=== PATIENT | female | born 1975 | race Caucasian/White ===

== ENCOUNTER 2020-08-26 09:32 | Outpatient (CLI) | payer BC, SELFPAY ==
--- NOTE | ~2020-08-26 | US_ITS ---
EXAMINATION: US pelvic complete w TV DATE: 08/26/2020 10:33 INDICATION: Abnormal uterine bleeding Comparison:No prior studies for comparison. TECHNIQUE: Multiple transabdominal and endovaginal sonographic images of the pelvis performed. FINDINGS: The uterus measures 9.4 x 4.2 x 4.9 cm. The endometrial complex measures 8 mm. The right ovary measures 3.4 x 2.8 x 2.8 cm and the left ovary measures 2.7 x 2.1 x 1.9 cm. There are bilateral ovarian cysts measuring up to 2.5 cm on the right and 2.1 cm on the left. There are small follicles in each ovary. Normal doppler signal in both ovaries. There is no free fluid in the pelvis. There are no abnormal masses seen on either side. IMPRESSION: 1. Bilateral ovarian cysts, largest in the right ovary measuring 2.5 cm. Reviewed, dictated and finalized at location B.
== END 2020-08-26 09:33 | disposition home or self-care (01) ==
PROVIDERS: PCP Obstetrics & Gynecology; Visit Provider Obstetrics & Gynecology
DX: N83.202 Unspecified ovarian cyst, left side (principal); N83.201 Unspecified ovarian cyst, right side; N93.9 Abnormal uterine and vaginal bleeding, unspecified
CPT/HCPCS: 76830; 76856

== ENCOUNTER 2021-04-21 12:26 | Emergency (ER) | payer BC, SELFPAY ==
[2021-04-21] VITALS (15 sets, daily range): BP systolic 104–119; BP diastolic 68–87; PULSE 110–147; RESP 12–26; TEMP 37.2; O2SAT 90–100
--- NOTE | ~2021-04-21 | CT_ITS ---
EXAMINATION: CT abdomen pelvis w con DATE: 04/21/2021 15:02 INDICATION: Low abdominal pain. Bilateral flank pain. Nausea. TECHNIQUE: Computed tomography (CT) of the abdomen and pelvis was performed with 100 mL Omnipaque 350 intravenous contrast. Automated exposure control and iterative reconstruction technique were employe d. The dose-length product was 340.72 mGy-cm. COMPARISON: Ultrasound pelvis 08/26/2020 FINDINGS: The visualized portions of the lung bases demonstrate mild atelectasis. No pleural effusion . The heart size is normal. No pericardial effusion. The liver, spleen, gallbladder, pancreas, adrena l glands, and kidneys are normal. There is bilateral hydrosalpinx. There are no dilated loops of cole l. The appendix is normal. There are no pathologically enlarged lymph nodes. There is no free intrape ritoneal fluid. There is fat stranding at the root of the small bowel mesentery. There is a benign [place] in right pelvis. There is mild lumbar spondylosis. IMPRESSION: 1. Bilateral hydrosalpinx. 2. Fat stranding at the root of the small bowel mesentery, consistent with edema versus inflammation Reviewed, dictated and finalized at location B. UNITY ASSOCIATE IMPRESSION: 1. Bilateral hydrosalpinx. 2. Fat stranding at the root of the small bowel mesentery, consistent with peace a versus inflammation
[2021-04-21] MEDS: SODIUM CHLORIDE 0.9% IV 1,000 ML 999 ML IV CONT (13:30)
--- NOTE | 2021-04-21 13:34 | ED.ABDPAIN ---
HPI - Abdominal Pain General Chief Complaint: Back Pain/Injury Stated Complaint: pain in back and abd, dizziness, urinary sx Time Seen by Provider: 04/21/21 12:31 Source: patient Mode of arrival: ambulatory Limitations: no limitations History of Present Illness HPI narrative: Patient is a 46-year-old female complaining of lower abdominal pain accompanied by bilateral flank pain, nausea and dysuria, 3 out of 10, sharp started 2 days ago. Patient also states that she was having some dizziness due to the pain but now resolved. Patient denies any chest pain, shortness of breath, vomiting, diarrhea, fever or chills. Patient did not want anything for pain. Related Data Home Medications Medication Instructions Recorded Confirmed levothyroxine PO 04/21/21 liothyronine mcg 04/21/21 thyroid (pork) [[facility] Thyroid] 04/21/21 Allergies Allergy/AdvReac Type Severity Reaction Status Date / Time ciprofloxacin Allergy Mild Unknown Verified 04/21/21 12:35 [place] Nut Allergy Severe THROAT Uncoded 07/12/14 15:52 CLOSES UP Review of Systems Review of Systems: All systems reviewed & are unremarkable except as noted in HPI and below Constitutional: Constitutional: Denies body ache(s), Denies chills, Denies excessive sweating, Denies fatigue, Denies fever(s), Denies headache(s), Denies lethargy, Denies malaise, Denies weakness and Denies weight loss Eyes: Eyes: Denies blurry vision, Denies change in vision and Denies loss of vision ENT: Denies dizziness, Denies ear discharge, Denies headache(s), Denies lip swelling, Denies epistaxis, Denies nasal congestion, Denies neck pain, Denies throat swelling and Denies tongue swelling Cardiovascular: Cardiovascular: Denies chest pain, Denies chest pain at rest, Denies chest pain with activity, Denies diaphoresis, Denies rapid heart rate, Denies edema, Denies irregular heart rhythm, Denies lightheadedness, Denies palpitations, Denies dyspnea and Denies dyspnea on exertion Respiratory: Respiratory: Denies chest congestion, Denies cough, Denies hemoptysis, Denies dyspnea and Denies dyspnea on exertion Gastrointestinal: Gastrointestinal: Denies melena, Denies hematochezia, Denies diarrhea, Denies vomiting and Denies hematemesis Musculoskeletal: Musculoskeletal: Denies abnormal gait, Denies deformity, Denies joint swelling, Denies limited range of motion, Denies neck pain and Denies numbness Neurologic: Denies Abnormal speech present, Denies abnormal gait, Denies confusion, Denies dizziness, Denies headache(s), Denies focal weakness, Denies loss of vision, Denies numbness, Denies Other visual disturbances, Denies Sensory deficit (Neuro) and Denies weakness Psychiatric: Psychiatric: Denies confusion, Denies depression, Denies auditory hallucinations, Denies homicidal ideation and Denies suicidal ideation Endocrine: Endocrine: Denies cold intolerance, Denies excessive sweating, Denies fatigue, Denies heat intolerance and Denies palpitations Hematologic/Lymphatic: Hematologic/Lymphatic: Denies easy bleeding and Denies easy bruising Allergic/Immunologic: Allergic/Immunologic: Denies lip swelling, Denies throat swelling and Denies tongue swelling PMFSH Comments Past medical history: Hypothyroidism Family history: Hypertension Social history: Positive for smoker no EtOH or drug use Exam Const: General: cooperative, healthy appearing, comfortable, no acute distress, well developed, alert and awake; No confusion Orientation/consciousness: oriented to person, oriented to place, oriented to time, patient oriented x3 and No confusion Limitations: no limitations HENMT: Head: normal to inspection, normocephalic and atraumatic Ears: hearing grossly normal bilaterally, TM normal on the right and TM normal on the left General nose exam: Normal external nose present, Normal nares present and No nasal discharge present Face and sinus: normal facial exam Mouth: Yes Normal oral and palatal mucosa present, Yes lip
[2021-04-21 13:39] LABS: Basophils Percent Auto 0.1 % (0.2-1.2); Eosinophils Absolute Auto 0.1 K/mm3 (0-0.3); Eosinophils Percent Auto 1.8 % (0-4.4); Hematocrit 39.4 % (37.0-47.0); Hemoglobin 14.5 g/dL (12.0-15.0); Immature Granulocyte Absolute 0.01 K/mm3 (0.00-0.031); Immature Granulocyte Percent A 0.1 % (0-0.5); Lymphocytes Absolute Auto 0.36 K/mm3 (0.9-3.2); Lymphocytes Percent Auto 5.3 % (18.3-44.2); Mean Corpuscular HGB Conc 36.8 g/dl (32-36); Mean Corpuscular Hemoglobin 32.1 pg (26-34); Mean Corpuscular Volume 87.2 fl (80-100); Mean Platelet Volume 9.2 fl (7.4-10.4); Monocytes Absolute Auto 0.3 K/mm3 (0.1-0.6); Monocytes Percent Auto 4.2 % (2.6-8.5); Neutrophils Absolute Auto 6.1 K/mm3 (1.3-6.7); Neutrophils Percent Auto 88.5 % (45.5-73.1); Platelet Count Result 160 k/mm3 (150-375); Red Blood Count 4.52 M/mm3 (4.2-5.4); Red Cell Distribution Width 11.8 % (11.5-14.5); White Blood Count 6.8 K/mm3 (4.5-10.0)
[2021-04-21 14:01] LABS: Add Urine Microscopic? YES; Appearance Urine Clear (Clear); Bilirubin Urine Negative (Negative); Blood Urine 2+ (Negative); Color Urine Yellow (Yellow); Glucose Urine UA Negative (Negative); Ketones Urine 1+ mg/dL (Negative); Leukocyte Esterase Ur Negative LEU/UL (Negative); Mucus Urine Rare /lpf; Nitrate Urine Negative (Negative); Protein Urine Negative (Negative); Squamous Epithelial Cell Urine Rare /hpf (Few); Urobilinogen Urine Negative mg/dL (<2.0); WBC Urine 0-3 /hpf
[2021-04-21] MEDS: ONDANSETRON INJ 4 MG/2 ML VIAL IV PUSH (14:22)
[2021-04-21 14:36] LABS: Alanine Aminotransferase 30 U/L (4-35); Albumin Level 4.2 g/dL (3.5-5.1); Alkaline Phosphatase 60 U/L (38-126); Anion Gap 9 mmol/L (8-16); Aspartate Amino Transferase 23 U/L (14-36); Bilirubin,Total 1.7 mg/dL (0.2-1.3); Blood Urea Nitrogen 16 mg/dL (7-17); Calcium 9.2 mg/dL (8.4-10.2); Carbon Dioxide 23 mmol/L (22-30); Chloride 100 mmol/L (98-107); Estimated CRCL calculation 140 ml/min; Estimated Glomerular Filt Rate > 60; Glucose 108 mg/dL (65-110); Lipase 79 U/L (23-300); Potassium 3.9 mmol/L (3.4-5.0); Sodium 132 mmol/L (137-145)
[2021-04-21 14:53] LABS: Lactic Acid Reflex < 0.5 mmol/L (0.7-2.1)
== END 2021-04-21 15:51 | disposition home or self-care (01) ==
PROVIDERS: Emergency Medicine; Emergency Provider Emergency Medicine
DX: R10.30 Lower abdominal pain, unspecified (principal); R11.0 Nausea
CPT/HCPCS: 36415; 74177; 80053; 81001; 81025; 83605; 83690; 85025; 96361; 96374; 99284; J2405; J7030; Q9967

== ENCOUNTER 2021-09-11 12:00 | Outpatient (CLI) | payer BC, SELFPAY ==
--- NOTE | ~2021-09-11 | MMUS_ITS ---
EXAMINATION: MM diagnostic ruddy RT w leonard, US breast RT limited HISTORY: Palpable right breast lump TECHNIQUE: Additional 3-D tomosynthesis images of the right breast were performed and synthetic 2-D i mages were generated. CAD analysis was submitted and interpreted. High resolution Limited right breas t ultrasound was performed. COMPARISON: 02/01/2018 BREAST PARENCHYMAL COMPOSITION: The breasts are heterogenously dense, which may obscure small masses FINDINGS: MAMMOGRAPHIC FINDINGS: There are no suspicious masses, calcifications or architectural distortion in the right breast to sug gest malignancy. ULTRASOUND: Limited right breast ultrasound: Normal heterogeneous echotexture without focal solid or cystic mass. IMPRESSION: 1. No evidence for malignancy in the right breast. 2. Routine yearly screening mammogram and regular clinical breast examination are recommended. BI-RADS Category 1: Negative Reviewed, dictated and finalized at location A. IMPRESSION: 1. No evidence for malignancy in the right breast. 2. Routine yearly screening mammogram and regular clinical breast examination a re recommended. BI-RADS Category 1: Negative
== END 2021-09-11 12:01 | disposition home or self-care (01) ==
LOC: ANHIMG 12:01
DX: N63.31 Unspecified lump in axillary tail of the right breast (principal)
CPT/HCPCS: 76642; 77061; 77065; G0279

== ENCOUNTER 2022-12-13 08:33 | Outpatient (CLI) | payer BC, SELFPAY ==
--- NOTE | ~2022-12-13 | DEXA_ITS ---
Bone Density Report Name: FALCO BETTENCOURT Age: 47 Sex: Female Ethnicity: White Date of : 1975 Indication: prior fracture; Referring Provider: UNKNOWN, UNKNOWN Study: Bone densitometry was performed. Exam Date: December 13, 2022 Accession number: [id number] Bone Density: Region BMD T-score Z-score Classification AP Spine(L1-L4) 0.931 -1.1 -0.5 Osteopenia Femoral Neck (Left) 0.627 -2.0 -1.5 Osteopenia Total Hip (Left) 0.766 -1.4 -1.1 Osteopenia Femoral Neck (Right) 0.552 -2.7 -2.1 Osteoporosis Total Hip (Right) 0.645 -2.4 -2.1 Osteopenia Femoral Neck Mean 0.590 -2.3 -1.8 Osteopenia Total Hip Mean 0.705 -1.9 -1.6 Osteopenia World Health Organization criteria for BMD impression classify patients as: Normal (T-score at or above -1.0), Osteopenia (T-score between -1.0 and -2.5), or Osteoporosis (T-score at or below -2.5). 10-year Fracture Risk: FRAX not reported because: Premenopausal woman Some T-score for Spine Total or Hip Total or Femoral Neck at or below -2.5 Clinical Information Provided by Patient: Has had a low trauma fracture Has used the following medications: Vitamin D, Calcium Patient maximum height was 57 Drinks caffeinated beverages Onset of menses at age 14 Premenopausal Number of children 2 Impression: The patient's bone mass is below expected range for age, gender and ethnicity based on the Right Femoral Neck Z-score. The patient has risk factors, including: previous fracture. Discussion: BONE DENSITY IS ABNORMALLY LOW FOR AGE, SEX, AND RACE. This patient's lowest Z-score is -2.0 or more below average for age, sex, and race at one or more sites. This may be due to low peak bone mass or to excessive bone loss. There may be some underlying disease or condition contributing to reduced bone mass. Further evaluation should be considered. Although there is a predictable association between low bone mass and the risk of osteoporotic fractures in untreated postmenopausal women, there are no data relating bone density and fracture risk in younger women. The ISCD position is that the diagnosis of ?low bone mass? or ?osteoporosis? should not be made on densitometric criteria alone. WHO criteria only apply to postmenopausal women. The 10-year fracture risk calculated by FRAX is less than the threshold recommended by the National Osteoporosis Foundation (NOF) for treatment for postmenopausal women, and no threshold has been established for premenopausal women. All treatment decisions require clinical judgment and consideration of individual patient factors, including patient preferences, comorbidities, previous drug use, risk factors not captured in the FRAX model (e.g., frailty, falls, vitamin D deficiency, increased bone turnover, interval significant decline in bone density) and possible under or overestimation of fracture risk by FRAX. Although pharmacologic
== END 2022-12-13 08:34 | disposition home or self-care (01) ==
LOC: CHSIMG 08:38
DX: Z78.0 Asymptomatic menopausal state (principal)
CPT/HCPCS: 77080

== ENCOUNTER 2024-06-19 08:44 | Outpatient (CLI) | payer BC, SELFPAY ==
--- NOTE | ~2024-06-19 | MMUS_ITS ---
EXAMINATION: MM diagnostic ruddy BI w leonard, US axilla RT HISTORY: Palpable right axillary abnormality TECHNIQUE: Additional 3-D tomosynthesis images of the breasts were performed and synthetic 2-D images were generated. CAD analysis was submitted and interpreted. High resolution right axillary ultrasoun d was performed. COMPARISON: Comparison to multiple prior studies sequentially, with oldest reviewed study dated 09/2017. BREAST PARENCHYMAL COMPOSITION: Dense: The breasts are heterogeneously dense, which may obscure small masses FINDINGS: MAMMOGRAPHIC FINDINGS: The breasts are stable. No new masses, calcifications or architectural distortion in either breast to suggest malignancy. ULTRASOUND: Right axillary ultrasound: Normal heterogeneous echotexture without focal solid or cystic mass. IMPRESSION: 1. No evidence for malignancy in either breast. 2. Routine yearly screening mammogram and regular clinical breast examination are recommended. BI-RADS CATEGORY 1 - NEGATIVE Reviewed, dictated and finalized at location A. EIN SPECIALIST IMPRESSION: 1. No evidence for malignancy in either breast. 2. Routine yearly screening mammogram and regular clinical breast examination a re recommended. BI-RADS CATEGORY 1 - NEGATIVE
--- OUTSIDE RECORDS SUMMARY | 2024-06-21 16:18 | XMS_ITS | Referral Summary ---
Author Organization [facility] Address [address] [place] [id number] Care Team Providers Care Poultry Dresser Name Role Phone Reece Holley DO Primary Care Provide r Allergies Active Allergy Reactions Criticality Noted Date Comments Sherrard Nut Anaphylaxis High 10/04/2022 Ciprofloxacin Rash Medium 03/09/2017 [place] Itching Low 10/04/2022 Mouth itching Medications levothyroxine sodium (TIROSINT) 50 mcg capsuleIndicati ons:hypothyroid ism Take 1 capsule (50 mcg total) by mouth every morning 2 Active liothyronine (CYTOMEL) 5 mcg tabletIndicatio ns:hypothyroidi sm Take 2 tablets (10 mcg total) by mouth 3 (three) times a day Active metoclopramide (REGLAN) 10 mg tabletIndicatio ns:migraine Take 1 tablet (10 mg total) by mouth every 8 (eight) hours as needed 7 Active thyroid 97.5 mg tabletIndicatio ns:hypothyroidi sm Take 1 tablet (97.5 mg total) by mouth 2 (two) times a day [place] thyroid Active valACYclovir (VALTREX) 500 mg tabletIndicatio ns:cold sore Take 1 tablet (500 mg total) by mouth daily as needed (HSV outbreaks) Active cycloSPORINE (RESTASIS) 0.05 % ophthalmic emulsionIndicat ions:Dry eye syndrome of both eyes Administer 1 drop into both eyes 2 (two) times a day 60 mL 11 3 Active Additional Information Patient taking differently:1 drop each eye 2 times daily,Indications: dry eye, Informant: Self, Reported on 04/20/2023 HERBAL DRUGS ORALIndications :supplement Take 1 tablet by mouth nightly L-5-MTHF Active cyanocobalamin 2,000 mcg tabletIndicatio ns:Prevention of Vitamin B12 Deficiency Take 1 tablet (2,000 mcg total) by mouth nightly With folate Active vitamin D3-vitamin K2 25 mcg (1,000 unit)-90 mcg tablet,disinteg ratingIndicatio ns:health Take 1 tablet by mouth nightly 5000IU D3/2000mcg Vit K1 and K2 Active ibuprofen 200 mg tab/cap Take 2 tablet/capsule (400 mg total) by mouth every 6 (six) hours as needed for pain Active UNABLE TO FINDIndications :bone health Take 4 each by mouth nightly Med Name: Osteo Force 4 tablets at night Active Ubrelvy 50 mg tablet Take 1 tablet (50 mg total) by mouth once as needed for migraine 3 Active aspirin 325 mg enteric coated tablet Take 1 tablet (325 mg total) by mouth daily Post operatively for DVT prophylaxis 30 tablet 4 Active oxyCODONE (ROXICODONE) 5 mg immediate release tabletIndicatio ns:Pain Take 1 tablet (5 mg total) by mouth every 6 (six) hours as needed for pain 28 tablet 4 Active senna-docusate (PERICOLACE) 8.6-50 mg Take 1 tablet by mouth 2 (two) times a day as needed for constipation 30 tablet 4 Active ondansetron (ZOFRAN) 4 mg tablet Take 1 tablet (4 mg total) by mouth every 8 (eight) hours as needed for nausea or vomiting 20 tablet 4 Active acetaminophen (TYLENOL) 500 mg tablet Take 2 tablets (1,000 mg total) by mouth every 8 (eight) hours as needed for pain 60 tablet 4 Active progesterone 50 mg/mL injection Inject into the muscle as instructed daily Active ibandronate (BONIVA) 150 mg tablet Take 1 tablet (150 mg total) by mouth every 30 (thirty) days Take in AM with glass of water prior to food, don't lie down for 60 minutes. 3 tablet 3 4 03/15/20 25 Active Active Problems Problem Noted Date Diagnosed Date Closed right trimalleolar fr acture, with routine healing, subsequent encounter 04/19/2023 Localized osteoporosis witho ut current pathological fracture 02/24/2023 Overview (03/15/2024): Ms. Gutierrez is here for follow up on her bone health while on calcium and vitamin D. Over the past year she was also started on progesterone and testosterone by her primary doctor for menopause and her hot flashes have abated and she's had no periods. She has a history of an ankle fracture in 09/2022 after twisting her ankle and she was noted by the orthopedist to have soft bones . She did require an ORIF and it healed well. No other falls nor fractures as an adult. PMHx: -She's been gluten free for a history of celiac disease dxd at age 31 by serum screening. TTG-A labs were normal last year. -She was diagnosed as Hashimotos at age 37. Her hypothyroidism is controlled with thyroid replacement medication. She reports that she gets her thyroid levels checked regularly but her TSH is suppressed with a normal free T4 and an elevated free T3 while on thyroid replacement therapy. -She was diagnosed with vitamin D deficiency at age 37 and was started on vitamin D replacement therapy of 5,000 international units per day. She's been taking vitamin D 5000 international units per day for 10+ years. She gets calcium-rich foods 2-3 servings per day consisting of yogurt and milk. She has 2 children and breast them both for one year at age 34/36. No family history of breast cancer. Assessment & Plan (03/15/2024 5:28 PM CDT): Ms. Gutierrez is here for follow up on her osteopenia after a history of a recent ankle fracture in 09/2022. She has also clinically done well healing her fracture after her surgical repair. Her bone density has worsened and she does have localized osteoporosis in her left hip. I believe her bone density has worsened related to menopause and estrogen deficiency and oversupression with thyroid medication. I would add estrogen replacement therapy and reduce the thyroid dosage to regulate her TSH in a normal range. In addition I would add ibandronate once monthly for 1-2 years only during this rapid phase of bone loss associated with menopause. In addition, she should continue on calcium and vitamin D and exercise. She should remain gluten free. Assessment & Plan (03/06/2023 11:57 PM CDT): Ms. Gutierrez is here for evaluation of her bone health after a history of a recent ankle fracture in 09/2022. Fortunately her bone density is normal. She has also clinically done well healing her fracture after her surgical repair. She should continue on calcium and vitamin D and check a vitamin D level and a celiac blood test to make sure her celiac disease is controlled. 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 ([facility]) 03/18/2022 Glaucoma suspect of both eyes 01/29/2022 Overview (08/06/2022): +mother and mgm with glaucoma Angles open with gonio normal IOPs CCTs>avg 565/569 Sotomayor visual field (HVF) full right eye (OD), left eye (OS) 08/06/21 OCT RNFL normal thickness both eyes (OU) 08/06/21 Assessment & Plan (08/06/2022 9:01 AM COMMUNITY SUPPORT PROFESSIONAL): +strong FHx testing re-assuring, stressed importance of annual eye exams for intraocular pressure (IOP) monitoring Assessment & Plan (01/29/2022 10:34 AM CDT): Moderate CDR with healthy appearing NRR OU, normal IOP. +famhx glc: mother/MGM (young age) Educated pt on glaucoma and importance of proper followup. Considering famhx, recommended baseline testing. RTC 3 months for IOP/HVF 24-2/OCT RNFL OU. Social History Tobacco Use Types Packs/Day Years Used Date Smoking Tobacco: Never Smokeless Tobacco: Never Tobacco Cessation:Counseling Given: Not Answered AUDIT-C Answer Date Recorded Q1: How often do you have a drink containing alc ohol? 2-3 times a week 07/08/2023 Q2: How many drinks containi ng alcohol do you have on a typical day when you are drinking? 1 or 2 07/08/2023 Q3: How often do you have si x or more drinks on one occasion? Never 07/08/2023 Personal Safety Answer Date Recorded Have you ever been in or are you currently in a harmful physical or emotional relationship or is someone making you feel afraid or unsafe? Denies 07/08/2023 Comments Unknown Sex and Gender Information Value Date Recorded Sex Assigned at Not on file Legal Sex Female 9:53 AM CDT Gender Identity Not on file Sexual Orientation Not on file Last Filed Vital Signs Vital Sign Reading Time Taken Comments Blood Pressure 129/89 07/08/2023 9:30 AM COMMUNITY SUPPORT PROFESSIONAL Pulse 103 07/08/2023 9:30 AM COMMUNITY SUPPORT PROFESSIONAL Temperature 36.3 ??C (97.3 ??F) 07/08/2023 8:40 AM CS T Respiratory Rate 20 07/08/2023 9:30 AM COMMUNITY SUPPORT PROFESSIONAL Oxygen Saturation 95% 07/08/2023 9:30 AM COMMUNITY SUPPORT PROFESSIONAL Inhaled Oxygen Concentration - - Weight 59.6 kg (131 lb 6.4 oz) 03/15/2024 9:29 A M CDT Height 170.2 cm (5' 7 ) 03/15/2024 9:29 AM CDT Body Mass Index 20.58 03/15/2024 9:29 AM CDT Plan of Treatment Not on file Medical Devices Explanted Type Area Safety Attendant Device Identifier Shelf Expiration Date Model / Serial / Lot [employer]/ Ortho Evos 6mm Washer Orthopedic 2.4mm Screw Mini Plating System [id number] - [id number] Explanted:Qty: 1 on 10/08/2022 by Adalberto Stone MD at [facility] Other - see comments Right: Ankle [employer]/O rtho [id number] / / [employer]/ Ortho Evos 7mm Washer Orthopedic 2.7mm Screw Mini Plating System [id number] - [id number] Explanted:Qty: 1 on 10/08/2022 at [facility] Other - see comments Right: Ankle [employer]/O rtho [id number] / / [employer]/ Ortho Evos [id number] 16.3x1.7mm 5 Hole Low Profile Variable Angle Lock [id number] - [id number] Implanted:Qty: 1 on 10/08/2022 by Adalberto Stone MD at [facility] Explanted:Qty: 1 on 07/08/2023 at [facility] Plate Right: Ankle [employer]/O rtho [id number] / / [employer]/ Ortho Evos 3.5mm 12mm Self Tap Cortex Screw Bone Sterile [id number] - [id number] Explanted:Qty: 1 on 10/08/2022 by Adalberto Stone MD at [facility] Screw Right: Ankle [employer]/O rtho [id number] / / [employer]/ Ortho 2.7mm 4.5mm 15mm Self Retaining Screwdriver Self Tap Flat Head [id number] - [id number] Explanted:Qty: 1 on 10/08/2022 at [facility] Screw Right: Ankle [employer]/O rtho [id number] / / [employer]/ Ortho 2.4mm 3.8mm 20mm Self Retaining Screwdriver Self Tap Flat Head [id number] - [id number] Explanted:Qty: 1 on 10/08/2022 by Adalberto Stone MD at [facility] Screw Right: Ankle [employer]/O rtho [id number] / / [employer]/ Ortho 2.7mm 4.5mm 20mm Self Retaining Screwdriver Self Tap Flat Head [id number] - [id number] Explanted:Qty: 1 on 10/08/2022 by Adalberto Stone MD at [facility] Screw Right: Ankle [employer]/O rtho [id number] / / [employer]/ Ortho Evos Mini 2.7mm 12mm Cortex T8 Screw Bone Stainless Steel Sterile [id number] - [id number] Explanted:Qty: 1 on 10/08/2022 by Adalberto Stone MD at [facility] Screw Right: Ankle [employer]/O rtho [id number] / / [employer]/ Ortho Evos Mini 2.7mm 4.5mm 11mm Self Tap Cortex T8 Screw Bone [id number] - [id number] Implanted:Qty: 1 on 10/08/2022 by Adalberto Stone MD at [facility] Explanted:Qty: 1 on 07/08/2023 by Adalberto Stone MD at [facility] Screw Right: Ankle [employer]/O rtho [id number] / / [employer]/ Ortho Evos 3.5mm 50mm Self Tap Cortex Screw Bone Sterile [id number] - [id number] Implanted:Qty: 1 on 10/08/2022 by Adalberto Stone MD at [facility] Explanted:Qty: 1 on 07/08/2023 at [facility] Screw Right: Ankle [employer]/O rtho [id number] / / [employer]/ Ortho Evos 3.5mm 44mm Self Tap Cortex Screw Bone Sterile [id number] - [id number] Implanted:Qty: 1 on 10/08/2022 by Adalberto Stone MD at [facility] Explanted:Qty: 1 on 07/08/2023 by Adalberto Stone MD at [facility] Screw Right: Ankle [employer]/O rtho [id number] / / [employer]/ Ortho Evos 3.5mm 12mm Self Tap Cortex Screw Bone Sterile [id number] - [id number] Implanted:Qty: 1 on 10/08/2022 by Adalberto Stone MD at [facility] Explanted:Qty: 1 on 07/08/2023 by Adalberto Stone MD at [facility] Screw Right: Ankle [employer]/O rtho [id number] / / [employer]/ Ortho Evos Mini 2.7mm 4.5mm 15mm Self Tap Cortex T8 Screw Bone [id number] - [id number] Implanted:Qty: 1 on 10/08/2022 by Adalberto Stone MD at [facility] Explanted:Qty: 1 on 07/08/2023 by Adalberto Stone MD at [facility] Screw Right: Ankle [employer]/O rtho [id number] / / [employer]/ Ortho Evos Mini 2.7mm 4.5mm 38mm Self Tap Cortex T8 Screw Bone Sterile [id number] - [id number] Implanted:Qty: 2 on 10/08/2022 by Adalberto Stone MD at [facility] Explanted:Qty: 2 on 07/08/2023 at [facility] Screw Right: Ankle [employer]/O rtho [id number] / / [employer]/ Ortho 2.7mm 4.3mm 14mm Self Tap Lock Small Bone Long Bone T8 2mm Screw [id number] - [id number] Implanted:Qty: 1 on 10/08/2022 by Adalberto Stone MD at [facility] Explanted:Qty: 1 on 07/08/2023 by Adalberto Stone MD at [facility] Screw Right: Ankle [employer]/O rtho [id number] / / [employer]/ Ortho Evos Mini 2.7mm 4.5mm 12mm Self Tap Cortex T8 Screw Bone [id number] - [id number] Implanted:Qty: 1 on 10/08/2022 by Adalberto Stone MD at [facility] Explanted:Qty: 1 on 07/08/2023 by Adalberto Stone MD at [facility] [place] Screw Right: Ankle [employer]/O rtho [id number] / / Procedures Procedure Name Priority Date/Time Associated Diagnosis Comments DEXA TBS AXIAL SKELETON BONE DENSITY 1 OR MORE SITES Schedule Routine, Read Routine (OP Routine) 03/15/2024 9:28 AM CDT Osteopenia of multiple sites from Last 3 Months or Most Recently Relevant to Health Maintenance Results * Dexa TBS Axial Skeleton Bone Density 1 or more sites (03/15/2024 9:28 AM CDT) Anatomical Region Laterality Modality Wrist, Body N/A Radiographic Pam ging Narrative 03/15/2024 1:17 PM CDT Patient Name: Lana Gutierrez Date of : 1975 Date of scan: 03/15/2024 Bone mineral density was performed on a [employer] Discovery Densitometer. ?? Based on machine cross-calibration and precision studies the least significant changes of this densitometer is 0.024 g/cm2 at the spine, 0.020 g/cm2 at the total proximal femur, and 0.014g/cm2 at the forearm. HISTORY: This is a 49 y.o. postmenopausal female with a history of asthma, celiac disease, thyroid disease, and vitamin D deficiency. She reports that she has never smoked. She has never used smokeless tobacco. Currently on treatment with calcium, vitamin D, hormone replacement therapy, and thyroid hormone. INDICATIONS: Menopause status and vitamin D deficiency. FINDINGS: BONE MINERAL DENSITY OF THE LUMBAR SPINE Bone Mineral Density (BMD) of the lumbar spine was measured from L1-L4 and the average density was calculated to be 0.898 gm/cm2. This corresponds to a T-score (standard deviations from the mean of young adults) of -1.4. When compared to the previous study of 02/24/2023 there has been a -0.041 gm/cm (-4.4%) decrease in bone density that is considered significant. BONE MINERAL DENSITY OF THE PROXIMAL FEMUR Bone Mineral Density (BMD) of the left hip total was found to be 0.707 gm/cm2. This corresponds to a T-score standard deviations from the mean of young adults of -1.9. Femoral neck is 0.592 gm/cm2 with a T-score (standard deviations from the mean of young adults) of -2.3. When compared to the previous study of 02/24/2023 there has been a -0.032 gm/cm (-4.3%) decrease in bone density that is considered significant. BONE MINERAL DENSITY OF THE PROXIMAL FEMUR Bone Mineral Density (BMD) of the right hip total was found to be 0.687 gm/cm2. This corresponds to a T-score standard deviations from the mean of young adults of -2.1. Femoral neck is 0.536 gm/cm2 with a T-score (standard deviations from the mean of young adults) of -2.8. When compared to the previous study of 02/24/2023 there has been no significant changes in bone density. SUMMARY: Bone mineral density shows evidence of osteoporosis and marked increase risk of fracture. There has been a significant decrease in bone density since previous measurement. ADDITIONAL COMMENTS: Postmenopausal Women and Men Over 50: Diagnostic criteria: Osteoporosis: BMD at or below -2.5 T-score; Osteopenia (low bone mass): BMD between -1.0 and -2.5 T-score. If the patient has a history of a fragility fracture, a fracture that occurred with trauma equivalent to a fall from a standing position or less, then the diagnosis is osteoporosis regardless of bone density. The history and data sections of the bone mineral density scan were prepared by Shannon Ovalles(Clarissa)(Shahrzad)(BD) CBDT who is accredited by the International Society of Clinical Densitometry. The overall patient assessment and scan interpretation were performed by Cynthia Reeves MD who is certified by the International Society of Clinical Densitometry. [id number] Cynthia Reeves MD IMG DXA PROCEDURES Final Re sult from Last 3 Months or Most Recently Relevant to Health [place] [address] [facility] ACC[facility] Member Subscriber Plan / Payer (Ef fective 2022-Present) Name:Lana Gutierrez Member ID:[id number] Relation to Subscriber:Self Name:Lana Gutierrez Subscriber ID:[id number] Payer ID:[id number] (NAIC) Type:[employer] Address: [address] [place] [id number] [place] [employer] O[employer] Care Teams Poultry Dresser Relationship Specialty Start Date End Date Reece Holley DO [address] [address] PCP - General Internal Medicine 12/08/21
--- OUTSIDE RECORDS SUMMARY | 2024-06-21 16:18 | XMS_ITS | Clinical Summary ---
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 ([facility]) 03/18/2022 Glaucoma suspect of both eyes 01/29/2022 Overview (08/06/2022): +mother and mgm with glaucoma Angles open with gonio normal IOPs CCTs>avg 565/569 Sotom[place]or visual field (HVF) full right eye (OD), left eye (OS) 08/06/21 OCT RNFL normal thickness both eyes (OU) 08/06/21 Assessment & Plan (08/06/2022 9:01 AM GAMING ASSOCIATE): +strong FHx testing re-assuring, stressed importance of annual eye exams for intraocular pressure (IOP) monitoring Assessment & Plan (01/29/2022 10:34 AM CDT): Moderate CDR with healthy appearing NRR OU, normal IOP. +famhx glc: mother/MGM (young age) Educated pt on glaucoma and importance of proper followup. Considering famhx, recommended baseline testing. RTC 3 months for IOP/HVF 24-2/OCT RNFL OU. Surgical History Surgery Date Site/Laterality Comments TONSILLECTOMY AND ADENOIDECTOMY 05/30/1985 - 05/29/1986 Bilateral NOSE SURGERY 05/30/1989 - 05/29/1990 BREAST LUMPECTOMY 05/30/2012 - 05/29/2013 Right NOSE SURGERY 05/30/2005 - 05/29/2006 with rib graft for reconstruction ANKLE FRACTURE SURGERY 10/05/2022 Right Medical History Medical History Date Comments Asthma Pneumonia none recent Raynaud phenomenon Urinary tract infection none rec ent Sleep apnea, obstructive doesn't use cpap. As a child, no problems after nose surger Migraines Seasonal allergies Hypothyroid Fever blister Family History Medical History Relation Name Comments Hyperlipidemia Father Osteoporosis Maternal Grandmother Glaucoma Mother Hypertension Mother Anesthesia problems Neg Hx Hip fracture Neg Hx Relation Name Status Comments Father Alive Maternal Grandmother Mother Alive Social History Tobacco Use Types Packs/Day Years [...] on file Sexual Orientation Not on file Obstetrics History Last Filed Vital Signs Vital Sign Reading Time Taken Comments Blood Pressure 129/89 07/08/2023 9:30 AM GAMING ASSOCIATE Pulse 103 07/08/2023 9:30 AM GAMING ASSOCIATE Temperature 36.3 ??C (97.3 ??F) 07/08/2023 8:40 AM CS T Respiratory Rate 20 07/08/2023 9:30 AM GAMING ASSOCIATE Oxygen Saturation 95% 07/08/2023 9:30 AM GAMING ASSOCIATE Inhaled Oxygen Concentration - - Weight 59.6 kg (131 lb 6.4 oz) 03/15/2024 9:29 A M CDT Height 170.2 cm (5' 7 ) 03/15/2024 9:29 AM CDT Body Mass Index 20.58 03/15/2024 9:29 AM CDT Plan of Treatment Health Maintenance Due Date Last Done Comments Breast Cancer Screening-Mammogram 1976 Cervical Cancer Screening-Pa p and HPV 1976 Colon Cancer Screening-Colonoscopy 1976 Depression Screening 1976 HLA B 5701 Typing 1976 Proteinuria screening ? Urinalysis (UA) 1976 T Spot (quantiferon gold) 1976 Pneumococcal vaccine <65 (1 of 2 - PCV) 02/03/1982 Lipid Panel 02/03/1986 HIV+ Chlamydia and Gonorrhea Screening (Rectal) 02/03/1987 HIV + Chlamydia and Gonorrhe a Screening (Urine) 02/03/1989 HIV+ Chlamydia and Gonorrhea Screening (Throat) 02/03/1989 Hepatitis C Screening 02/03/1989 RPR Screening 02/03/1989 G6PD 02/03/1994 Hemoglobin A1C 02/03/1994 Hepatitis A Screening 02/03/1994 Hepatitis B Screening 02/03/1994 Regular Well Visit/Exam 18-64 02/03/1994 Hepatitis A Vaccines (1 of 2 - Risk 2-dose series) 02/03/1995 Hepatitis B Vaccines (1 of 3 - 19+ 3-dose series) 02/03/1995 Zoster Vaccine (1 of 2) 02/03/1995 DTaP/Tdap/Td Vaccine (2 - Tdap) 01/29/2020 0 Covid-19 Vaccine (4 - 2023-2 5 season) 2024 05/01/2021, 09/16/2020, 08/19/2020 Influenza Vaccine (#1) 2024 , 04/06/2014, 02/27/2014, Additional history exists Osteoporosis Screening-Bone Density Scan 03/15/2027 03/15/2024, 02/24/2023 Medical Devices Explanted Type Area Jewelry Casting Model Maker Apprentice Device Identifier Shelf Expiration Date Model / Serial / Lot [employer]/ Ortho Evos 6mm Washer Orthopedic 2.4mm Screw Mini Plating System [id number] - [id number] Explanted:Qty: 1 on 10/08/2022 by Adalberto Stone MD at [facility] Other - see comments Right: Ankle [employer]/O rtho [id number] / / [employer]/ Ortho Evos 7mm Washer Orthopedic 2.7mm Screw Mini Plating System [id number] - [id number] Explanted:Qty: 1 on 10/08/2022 at [facility] Other - see comments Right: Ankle [employer]Rich[employer]/O rtho [id number] / / [employer]/ Ortho Evos [id number] 16.3x1.7mm 5 Hole Low Profile Variable Angle Lock [id number] - [id number] Implanted:Qty: 1 on 10/08/2022 by Adalberto Stone MD at [facility] Explanted:Qty: 1 on 07/08/2023 at [facility] Plate Right: Ankle [employer]Rich[employer]/O rtho [id number] / / [employer]/ Ortho Evos 3.5mm 12mm Self Tap Cortex Screw Bone Sterile [id number] - [id number] Explanted:Qty: 1 on 10/08/2022 by Adalberto Stone MD at [facility] Screw Right: Ankle [employer]Rich[employer]/O rtho [id number] / / [employer]/ Ortho 2.7mm 4.5mm 15mm Self Retaining Screwdriver Self Tap Flat Head [id number] - [id number] Explanted:Qty: 1 on 10/08/2022 at [facility] Screw Right: Ankle [employer]Rich[employer]/O rtho [id number] / / [employer]/ Ortho 2.4mm 3.8mm 20mm Self Retaining Screwdriver Self Tap Flat Head [id number] - [id number] Explanted:Qty: 1 on 10/08/2022 by Adalberto Stone MD at [facility] Screw Right: Ankle [employer]Rich[employer]/O rtho [id number] / / [employer]Rich[employer]/ Ortho 2.7mm 4.5mm 20mm Self Retaining Screwdriver Self Tap Flat Head [id number] - [id number] Explanted:Qty: 1 on 10/08/2022 by Adalberto Stone MD at [facility] Screw Right: Ankle [employer]/O rtho [id number] / / [employer]/ Ortho Evos Mini 2.7mm 12mm Cortex T8 Screw Bone Stainless Steel Sterile [id number] - [id number] Explanted:Qty: 1 on 10/08/2022 by Adalberto Stone MD at [facility] Screw Right: Ankle [employer]/O rtho [id number] / / [employer]Rich[employer]/ Ortho Evos Mini 2.7mm 4.5mm 11mm Self Tap Cortex T8 Screw Bone [id number] - [id number] Implanted:Qty: 1 on 10/08/2022 by Adalberto Stone MD at [facility] Explanted:Qty: 1 on 07/08/2023 by Adalberto Stone MD at [facility] [place] Screw Right: Ankle [employer]Rich[employer]/O rtho [id number] / / [employer]Rich[employer]/ Ortho Evos 3.5mm 50mm Self Tap Cortex Screw Bone Sterile [id number] - [id number] Implanted:Qty: 1 on 10/08/2022 by Adalberto Stone MD at [facility] Explanted:Qty: 1 on 07/08/2023 at [facility] Screw Right: Ankle Tho[employer] Nephew[employer]Richco/O rtho [id number] / / [employer]Rich[employer]/ Ortho Evos 3.5mm 44mm Self Tap Cortex Screw Bone Sterile [id number] - [id number] Implanted:Qty: 1 on 10/08/2022 by Adalberto Stone MD at [facility] Explanted:Qty: 1 on 07/08/2023 by Adalberto Stone MD at [facility] [place] Screw Right: Ankle [employer]Rich[employer]/O rtho [id number] / / [employer]Rich[employer]/ Ortho Evos 3.5mm 12mm Self Tap Cortex Screw Bone Sterile [id number] - [id number] Implanted:Qty: 1 on 10/08/2022 by Adalberto Stone MD at [facility] Explanted:Qty: 1 on 07/08/2023 by Adalberto Stone MD at [facility] [place] Screw Right: Ankle [employer]Richco/O rtho [id number] / / [employer]Rich[employer]/ Ortho Evos Mini 2.7mm 4.5mm 15mm Self Tap Cortex T8 Screw Bone [id number] - [id number] Implanted:Qty: 1 on 10/08/2022 by Adalberto Stone MD at [facility] Explanted:Qty: 1 on 07/08/2023 by Adalberto Stone MD at [facility] Screw Right: Ankle [employer]Richco/O rtho [id number] / / [employer]Rich[employer]/ Ortho Evos Mini 2.7mm 4.5mm 38mm Self Tap Cortex T8 Screw Bone Sterile [id number] - [id number] Implanted:Qty: 2 on 10/08/2022 by Adalberto Stone MD at [facility] Explanted:Qty: 2 on 07/08/2023 at [facility] [place] Screw Right: Ankle [employer]Rich[employer]/O rtho [id number] / / [employer]/ Ortho 2.7mm 4.3mm 14mm Self Tap Lock Small Bone Long Bone T8 2mm Screw [id number] - [id number] Implanted:Qty: 1 on 10/08/2022 by Adalberto Stone MD at [facility] Explanted:Qty: 1 on 07/08/2023 by Adalberto Stone MD at [facility] [place] Screw Right: Ankle [employer]Rich[employer]/O rtho [id number] / / [employer]hew[employer]Rich[employer]/ Ortho Evos Mini 2.7mm 4.5mm 12mm Self Tap Cortex T8 Screw Bone [id number] - [id number] Implanted:Qty: 1 on 10/08/2022 by Adalberto Stone MD at [facility] Explanted:Qty: 1 on 07/08/2023 by Adalberto Stone MD at [facility] Screw Right: Ankle [employer]Rich[employer]/O rtho [id number] / / Procedures Procedure Name Priority Date/Time [...] Bone mineral density was performed on a [employer] Discovery Densitometer. ?? Based on machine cross-calibration [...] by the International Society of Clinical Densitometry. [id number] Cynthia Reeves MD IMG DXA PROCEDURES Final Re sult from Last 3 Months or Most Recently Relevant to Health [place] [address] [place] [address] ANTHEM ACCESS BLUE ACCESS OOS Care Teams Pole Cutter Relationship Specialty Start Date End Date Reece Holley DO [address] [place] [place] [id number] PCP - General Internal Medicine 12/08/21
--- OUTSIDE RECORDS SUMMARY | 2024-06-21 16:18 | XMS_ITS | Referral Summary ---
Author Organization [facility] Address [address] [place] [address] Care Team Providers Care Fishery Division Chief Name Role Phone Tj Jerome MD Primary Care Provider [phone]- [phone] Source Comments [facility],non-owned Affiliates and Associated Physician Practices is amultiple site organization consisting of ambulatory clinics and hospital sitesin [place], [place], [place] and [place]. This disclosure is being madepursuant to the Care Everywhere program and may not contain all information available regarding this patient. Last updated 18.[facility] [employer] Allergies Active Allergy Reactions Criticality Noted Date Comments Ciprofloxacin 03/09/2017 Medications * Be aware that medications may not be up to date on this document. Alwaysverify current medications with the patient. Medication Sig Dispensed Refills Start Date End Date Status liothyronine (CYTOMEL) 25 MCG tablet Take 25 mcg by mouth once daily Active metoclopramide (REGLAN) 10 MG tablet Take 1 tablet by mouth every 8 hours as needed for Nausea/Vomiting 10 tablet 03/09/2017 Active Social History Tobacco Use Types Packs/Day Years Used Date Smoking Tobacco: Never Smokeless Tobacco: Never Alcohol Use Standard Drinks/Week Comments Yes 0 (1 standard drink = 0.6 oz pur e alcohol) occasionally Sex and Gender Information Value Date Recorded Sex Assigned at Not on file Gender Identity Female 03/10/2017 12:26 PM CDT Sexual Orientation Not on file Last Filed Vital Signs Vital Sign Reading Time Taken Comments Blood Pressure 100/52 03/09/2017 9:36 PM CDT Pulse 97 03/09/2017 9:36 PM CDT Temperature 36.7 ??C (98.1 ??F) 03/09/2017 8:19 PM CD T Respiratory Rate 17 03/09/2017 9:36 PM CDT Oxygen Saturation 98% 03/09/2017 9:36 PM CDT Inhaled Oxygen Concentration - - Weight 56.7 kg (125 lb) 03/09/2017 8:19 PM CDT Height 170.2 cm (5' 7 ) 03/09/2017 8:19 PM CDT Body Mass Index 19.58 03/09/2017 8:19 PM CDT Plan of Treatment Not on file Procedures Procedure Name Priority Date/Time Associated Diagnosis Comments HEPATITIS C ANTIBODY Routine 10/29/2013 12:27 PM CDT from Last 3 Months or Most Recently Relevant to Health Maintenance Results * HEPATITIS C ANTIBODY (10/29/2013 12:27 PM CDT) Hepatitis C Antibody NON-REACTI VE NON-REACT [facility]) Signal/Cutoff 0.08 <1.00 [facility] ([facility]) Comment: Test Performed at: [facility] [id number] [place] [address] ??[id number] MAMTA IRVING DO,MPH Blood specimen (specimen) BLOOD SPECIMEN / Unknown 10/29/2013 12:27 PM CDT 10/29/2013 12:30 PM CDT Toma Ulrich MD LAB - CHEMISTR Y ORDERABLES [facility] ([facility]) from Last 3 Months or Most Recently Relevant to Health Maintenance Care Teams Fishery Division Chief Relationship Specialty Start Date End Date Tj Jerome MD [address] [place] [address] [address] [place] [address] PCP - General Family Medicine 06/21/12
--- OUTSIDE RECORDS SUMMARY | 2024-06-21 16:18 | XMS_ITS | Encounter Summary ---
Author Organization [facility] Address [address] [place] [address] Care Team Providers Care Scrub Technician Name Role Phone Tj Jerome MD Primary Care Provider [phone]- [phone] Encounter Details Date Type Department Care Team (Late st Contact Info) Description 11/21/2019 Lab Requisition [facility] [address] [place] [id number] Karin Fu MD [address] [facility] [address] [place] [address] Social History Tobacco Use Types Packs/Day Years Used Date Smoking Tobacco: Never Smokeless Tobacco: Never Alcohol Use Standard Drinks/Week Comments Yes 0 (1 standard drink = 0.6 oz pur e alcohol) occasionally Sex and Gender Information Value Date Recorded Sex Assigned at Not on file Gender Identity Female 03/10/2017 12:26 PM CDT Sexual Orientation Not on file documented as of this encounter Plan of Treatment Not on file documented as of this encounter Procedures Procedure Name Priority Date/Time Associated Diagnosis Comments DERMATOPATHOLOGY Routine 11/20/2019 12:0 0 AM CDT documented in this encounter Results * DERMATOPATHOLOGY (11/20/2019 12:00 AM CDT) Case Report Dermatopathology Report ? Case: [id number] ? Authorizing Provider: ??Karin Fu MD ? Collected: ? 11/20/2019 12:00 AM ? Ordering Location: ? [facility] ?Received: ?11/21/2019 07:01 AM ? Pathologist: ? Shahrzad Eden MD ? Specimens: ?? A) - Skin, anterior neck ? B) - Skin, left neck ? 0 3:16 PM CDT DERMATOPATHOLOGY LABORATORY Final Diagnosis Specimen A. SKIN, anterior neck: LENTIGINOUS MELANOCYTIC NEVUS, COMPOUND TYPE, IRRITATED (COMPOUND MELANOCYTIC NEVUS WITH ARCHITECTURAL DISORDER) (D22.4) PRESENT AT MARGIN (see microscopic description and comment) Specimen B. SKIN, left neck: INTRADERMAL MELANOCYTIC NEVUS (D22.4) (see microscopic description) 0 3:16 PM CDT DERMATOPATHOLOGY LABORATORY Clinical History A: R/O nevus, irregular color B: R/O nevus, irritated 0 3:16 PM T DERMATOPATHOLOGY LABORATORY Gross Description Specimen A: Received is one formalin filled container labeled with the patient's name and designated anterior neck. The specimen consists of a shave biopsy measuring 3x3x1 mm. Jar 0. Specimen B: Received is one formalin filled container labeled with the patient's name and designated left neck. The specimen consists of a shave biopsy measuring 4x2x1 mm. Jar 0. 0 3:[address] [facility] DERMATOPATHOLOGY LABORATORY Microscopic Description Specimen A. SKIN, anterior neck: This is a compound nevus. There is melanin pigment in the stratum corneum. There is architectural disorder characterized by a lentiginous proliferation of melanocytes between irregular nests of cells along the dermal-epidermal junction, highlighted by MART-1/Melan-A immunohistochemical staining. There is underlying fibroplasia of the papillary dermis. The intradermal component is bland appearance and matures with depth. Original and deeper sections were reviewed. (Compound Ruben's Nevus or Compound Dysplastic Nevus) This lesion is present at the margin of the specimen. Additional deeper sections were obtained and reviewed. COMMENT: The histopathologic findings of the portion of the lesion sampled are reassuring. However, as this lesion is present at the margins of the specimen, clinicopathological correlation is recommended as to the nature of the remaining lesion. Specimen B. SKIN, left neck: There are nests of cytologically bland melanocytes within the dermis that mature with depth. Additional deeper sections were obtained and reviewed. 0 3:[address] [facility] DERMATOPATHOLOGY LABORATORY Disclaimer An external and internal positive and negative controls are appropriate for the histochemical, immunohistochemical and immunofluorescence stain(s) in this case (if any), except where stated explicitly. The performance characteristics of the stain(s) cited in this report were developed and its performance characteristic determined by the Dermatopathology Laboratory at [facility], directed by Dr. Sabino Eden. These tests need not be, and therefore are not, approved by the [place] Food and Drug Administration. The tests are used for clinical purposes. Billing Codes Specimen Charges Stain Charges 69560 39816 1 1 51932 1 0 3:16 PM CDT DERMATOPATHOLOGY LABORATORY Embedded Images 0 3:16 PM T DERMATOPATHOLOGY LABORATORY Pathology/Cytology TISSUE SPECIMEN FROM SKIN / Unknown 11/20/2019 11/21/2019 7:01 AM CDT Miscellaneous samples (specimen) TISSUE SPECIMEN FROM SKIN / Unknown 11/20/2019 11/21/2019 7:01 AM CDT Karin Fu MD LAB - PATHOLOGY/CYT OLOGY ORDERABLES DERMATOPATHOLOGY LABORATORY [facility] - Department of Dermatology Industrial Therapist [place]/[address] [phone] documented in this encounter Visit Diagnoses Not on filedocumented in this encounter Care Teams Scrub Technician Relationship Specialty Start Date End Date Tj Jerome MD [address] [place] [address] [address] [place] [address] PCP - General Family Medicine 06/21/12 documented as of this encounter
--- OUTSIDE RECORDS SUMMARY | 2024-06-21 16:18 | XMS_ITS | Patient Health Summary ---
Author Organization [facility] Address [address] [place] [address] Care Team Providers Care Call Center Assistant Name Role Phone Tj Jerome MD Primary Care Provider [phone] Note from [facility],non-owned Affiliates and Associated Physician Practices is amultiple site organization consisting of ambulatory clinics and hospital sitesin [place], [place], [place] and [place]. This disclosure is being madepursuant to the Care Everywhere program and may not contain all information available regarding this patient. Last updated 18.[facility] Allergies * Ciprofloxacin Medications * Be aware that medications may not be up to date on this document. Alwaysverify current medications with the patient. * liothyronine (CYTOMEL) 25 MCG tablet Take 25 mcg by mouth once daily * metoclopramide (REGLAN) 10 MG tablet(Started 03/09/2017) Take 1 tablet by mouth every 8 hours as needed for Nausea/Vomiting Social History Tobacco Use Types Packs/Day Years [...] Mass Index 19.58 03/09/2017 8:19 PM CDT Procedures * DERMATOPATHOLOGY(Performed 11/20/2019) * COMPREHENSIVE METABOLIC PANEL(Performed 03/09/2017) * CBC W AUTO DIFFERENTIAL(Performed 03/09/2017) * TSH(Performed 09/05/2014) * TSH(Performed 06/24/2014) * TSH(Performed 04/18/2014) * URINALYSIS - POINT OF CARE (AMB) [facility](Performed 03/04/2014) * THYROID PEROXIDASE ANTIBODY(Performed 02/27/2014) * THYROGLOBULIN ANTIBODY(Performed 02/27/2014) * TSH(Performed 02/27/2014) * T4 FREE(Performed 02/27/2014) * HLA TYPING B27(Performed 10/29/2013) * CARDIOLIPIN ANTIBODY IGM(Performed 10/29/2013) * CARDIOLIPIN ANTIBODY IGG(Performed 10/29/2013) * CARDIOLIPIN ANTIBODY IGA(Performed 10/29/2013) * THOMAS (SM) ANTIBODY VIN(Performed 10/29/2013) * SS-A/SS-B (SJOGREN'S) ANTIBODY PANEL(Performed 10/29/2013) * WOOD GANG SAWYER ANTIBODY(Performed 10/29/2013) * CHROMATIN ANTIBODY(Performed 10/29/2013) * HISTONE ANTIBODY(Performed 10/29/2013) * COMPLEMENT TOTAL(Performed 10/29/2013) * COMPLEMENT C4(Performed 10/29/2013) * COMPLEMENT C3(Performed 10/29/2013) * SCLERODERMA 70 (SCL) ANTIBODY(Performed 10/29/2013) * DNA ANTIBODY DS CRITHIDIA IFA(Performed 10/29/2013) * NADIR BLOOD SCREEN W/REFLEX TITER(Performed 10/29/2013) * LUPUS ANTICOAGULANT PANEL W RFLX(Performed 10/29/2013) * BETA-2 GLYCOPROTEIN 1 ANTIBODY IGG/IGM/IGA PANEL(Performed 10/29/2013) * HEPATITIS C ANTIBODY(Performed 10/29/2013) * CYCLIC CITRULLINATED PEPTIDE(CCP) AB IGG(Performed 10/29/2013) * RHEUMATOID FACTOR BLOOD QUANTITATIVE(Performed 10/29/2013) * HEPATITIS B SURFACE ANTIGEN W RFLX CONFIRMATION(Performed 10/29/2013) * T4 FREE(Performed 10/29/2013) * TSH(Performed 10/29/2013) * CK BLOOD(Performed 10/29/2013) * URINALYSIS W/MICROSCOPIC NO CULTURE(Performed 10/29/2013) * C-REACTIVE PROTEIN(Performed 10/29/2013) * ERYTHROCYTE SEDIMENTATION RATE(Performed 10/29/2013) * CBC W/O DIFFERENTIAL(Performed 10/29/2013) * COMPREHENSIVE METABOLIC PANEL(Performed 10/29/2013) * DERMATOPATHOLOGY(Performed 07/24/2013) * SONOGRAM - COMPLETE(Performed 06/21/2012) * DERMATOPATHOLOGY(Performed 06/09/2012) * DERMATOPATHOLOGY(Performed 06/09/2011) * DERMATOPATHOLOGY(Performed 08/28/2010) * DERMATOPATHOLOGY(Performed 07/15/2010) * LAB HISTORICAL RESULTS-ONBASE(Performed 04/10/2007) Results * DERMATOPATHOLOGY (11/20/2019 12:00 AM CDT) Only the most recent of6 resultswithin the time period is included. Case Report Dermatopathology Report ? Case: [id number] ? Authorizing Provider: ??Karin Fu MD ? Collected: ? 11/20/2019 12:00 AM ? Ordering Location: ? [facility] ?Received: ?11/21/2019 07:01 AM ? [...] (D22.4) (see microscopic description) 0 3:16 PM T DERMATOPATHOLOGY LABORATORY Clinical History A: R/O nevus, irregular color B: R/O nevus, irritated 0 3:16 PM CDT DERMATOPATHOLOGY LABORATORY Gross Description Specimen A: Received [...] 4x2x1 mm. Jar 0. 0 3:16 PM CDT DERMATOPATHOLOGY LABORATORY Microscopic Description Specimen A. SKIN, [...] were obtained and reviewed. 0 3:16 PM CDT DERMATOPATHOLOGY LABORATORY Disclaimer An external and internal positive and negative controls are appropriate for the histochemical, immunohistochemical and immunofluorescence stain(s) in this case (if any), except where stated explicitly. The performance characteristics of the stain(s) cited in this report were developed and its performance characteristic determined by the Dermatopathology Laboratory at [facility], directed by Dr. Sabino Eden. These tests need not be, and therefore are not, approved by the [place] Food and Drug Administration. The tests are used for clinical purposes. Billing Codes Specimen Charges Stain Charges 92473 53122 1 1 32086 1 0 3:16 PM CDT DERMATOPATHOLOGY LABORATORY Embedded Images 0 3:16 PM CDT DERMATOPATHOLOGY LABORATORY Pathology/Cytology TISSUE SPECIMEN FROM SKIN / Unknown 11/20/2019 11/21/2019 7:01 AM CDT Miscellaneous samples (specimen) TISSUE SPECIMEN FROM SKIN / Unknown 11/20/2019 11/21/2019 7:01 AM CDT Karin Fu MD LAB - PATHOLOGY/CYT OLOGY ORDERABLES DERMATOPATHOLOGY LABORATORY [facility] - Department of Dermatology [place]/[address] [phone] * (ABNORMAL) CBC W AUTO DIFFERENTIAL (03/09/2017 8:24 PM CDT) WBC 12.3(H) 4.4 - 10.7 x10E9/L 03/09/2017 8:31 PM CDT [facility] WBC Corrected x10E9/L 03/09/2017 8:31 PM CDT [facility] RBC 4.84 3.80 - 5.20 x10E12/L 03/09/2017 8:[facility] [address] [facility] Hemoglobin 15.6 12.0 - 15.6 gm/dL 03/09/2017 8:31 PM T [facility] Hematocrit 44.3 35.9 - 45.5 % 03/09/2017 8:31 PM CDT [facility] MCV 91.5 80.7 - 98.3 fl 03/09/2017 8:31 PM [facility] MCH 32.2 26.7 - 34.0 pg 03/09/2017 8:31 [address] [facility] MCHC 35.2 30.8 - 35.9 gm/dL 03/09/2017 8:31 PM [facility] Platelet Count 207 153 - 416 x10E9/L 03/09/2017 8:31 PM [facility] RDW-CV 12.1 12.1 - 14.9 % 03/09/2017 8:31 [address] [facility] MPV 9.0(L) 9.4 - 12.9 fl 03/09/2017 8:31 PM [facility] Neutrophils % 84.9(H) 44.0 - 73.0 % 03/09/2017 8:31 [address] [facility] Lymphocytes % 10.2(L) 20.0 - 43.0 % 03/09/2017 8:31 PM CDT [facility] Monocytes % 3.8(L) 5.0 - 13.0 % 03/09/2017 8:31 PM CDT [facility] Eosinophils % 0.7 0.0 - 6.0 % 03/09/2017 8:31 PM CDT [facility] Basophils % 0.2 0.0 - 2.0 % 03/09/2017 8:31 PM CDT [facility] Immature Granulocytes 0.2 0 - 1 % 03/09/2017 8:[address] [facility] Neutrophil Absolute 10.43(H) 2.01 - 7.14 x10E9/L 03/09/2017 8:31 PM CDT [facility] Lymphocytes Absolute 1.26 1.07 - 3.94 x10E9/L 03/09/2017 8:31 PM CDT [facility] Monocytes Absolute 0.47 0.26 - 1.07 x10E9/L 03/09/2017 8:31 PM CDT [facility] Eosinophils Absolute 0.09 0 - 0.47 x10E9/L 03/09/2017 8:31 PM CDT [facility] Basophils Absolute 0.03 0 - 0.08 x10E9/L 03/09/2017 8:31 PM CDT [facility] Immature Granulocytes Absolute 0.02 0.00 - 0.06 x10E9/L 03/09/2017 8:31 PM CDT [facility] nRBC Auto 0 /100 WBC 03/09/2017 8:31 PM CDT [facility] Blood BLOOD SPECIMEN / Unknown Venipuncture / Unknown 03/09/2017 8:24 PM CDT 03/09/2017 8:28 PM CDT Janet Abdul DO LAB - HEMATOLOGY ORD ERABLES [facility] [address] [place] [address] * (ABNORMAL) COMPREHENSIVE METABOLIC PANEL (03/09/2017 8:24 PM CDT) Only the most recent of2 resultswithin the time period is included. [facility] Glucose 87 74 - 106 mg/dL 03/09/2017 8:46 PM CDT [facility] Sodium 136 136 - 145 mmol/L 03/09/2017 8:46 PM CDT [facility] Potassium 3.6 3.5 - 5.1 mmol/L 03/09/2017 8:46 PM CDT [facility] Chloride 106 98 - 107 mmol/L 03/09/2017 8:46 PM CDT [facility] CO2 18(L) 22 - 31 mmol/L 03/09/2017 8:46 PM CDT [facility] Calcium 9.2 8.5 - 10.1 mg/dL 03/09/2017 8:46 PM CDT [facility] Anion Gap 12 8 - 16 mmol/L 03/09/2017 8:46 PM CDT [facility] BUN 15 7 - 21 mg/dL 03/09/2017 8:46 PM CDT [facility] Creatinine 0.47(L) 0.50 - 1.30 mg/dL 03/09/2017 8:46 PM CDT [facility] Alkaline Phosphatase 55 38 - 126 U/L 03/09/2017 8:46 PM CDT [facility] ALT 27 13 - 61 U/L 03/09/2017 8:46 PM CDT [facility] AST 12 5 - 40 U/L 03/09/2017 8:46 PM CDT [facility] Protein Total 7.8 6.4 - 8.2 gm/dL 03/09/2017 8:46 PM CDT [facility] Albumin 4.0 3.4 - 5.0 gm/dL 03/09/2017 8:46 PM CDT [facility] Bilirubin Total 1.2(H) 0.2 - 1.0 mg/dL 03/09/2017 8:46 PM CDT [facility] eGFR by MDRD >60 >60 mL/min/1.7 3m2 03/09/2017 8:46 PM CDT [facility] eGFR by MDRD >60 >60 mL/min/1.7 3m2 03/09/2017 8:46 PM CDT [facility] Blood BLOOD SPECIMEN / Unknown Venipuncture / Unknown 03/09/2017 8:24 PM CDT 03/09/2017 8:28 PM CDT Janet Abdul DO LAB - CHEMISTRY MEGGAN [facility] Organization Address City/State/ZIP Co de Phone Number [facility] [address] [place] [address] * TSH (09/05/2014 12:26 PM CDT) Only the most recent of5 resultswithin the time period is included. Pathologist [facility] TSH 3.96 mIU/L [facility] ([facility]) Comment: ?Reference Range ?> or = 20 Years ??0.40-4.50 ? Ranges ?First trimester ?0.26-2.66 ?Second trimester ?? 0.55-2.73 ?Third trimester ?0.43-2.91 Test Performed at: [email or web address] [place] [address] [place], [place] ??[phone] MAMTA IRVING DO,MPH Blood specimen (specimen) BLOOD SPECIMEN / Unknown 09/05/2014 12:26 PM CDT 09/05/2014 12:27 PM CDT Devika Henriquez MD LAB - CHEMISTRY [facility] ([facility]) * URINALYSIS - POINT OF CARE (AMB) [facility] (03/04/2014 4:45 PM CDT) Glucose UA NEG [facility] Bilirubin UA POCT NEG [facility] Ketones UA POCT NEG REPLACED BY [facility] Specific [place] UA 1.000 REPLACED BY [facility] Blood Urine POCT NEG REPLACED BY [facility] pH UA 8.0 [facility] Protein UA NEG [facility] Urobilinogen UA 0.2 REPLACED BY [facility] Nitrite UA NEG [facility] WBC UA SMALL [facility] Urine specimen (specimen) 03/04/2014 4:45 PM CDT Devika Henriquez MD LAB - POINT OF CARE ORDERABLES REPLACED BY [facility] * (ABNORMAL) THYROID PEROXIDASE ANTIBODY (02/27/2014 7:35 AM CDT) Thyroid Peroxidase TPO Antibody 150(H) <9 IU/mL [facility] ([facility]) Comment: Test Performed at: [email or web address] [place] [address] [place], [place] ??[phone] MAMTA IRVING DO,MPH 02/27/2014 7:35 AM CDT 02/27/2014 7:36 AM CDT Toma Ulrich MD LAB - CHEMISTR Y ORDERABLES Performing Organization Address [facility] de Phone Number [facility] ([facility]) * (ABNORMAL) THYROGLOBULIN ANTIBODY (02/27/2014 7:35 AM CDT) Thyroglobulin Antibody 3(H) < or = 1 IU/mL [facility] ([facility]) Comment: Test Performed at: [facility] [place], [place] ??[phone] MAMTA IRVING DO,MPH 02/27/2014 7:35 AM CDT 02/27/2014 7:36 AM CDT Toma Ulrich MD LAB - CHEMISTR Y ORDERABLES Performing Organization Address [facility] de Phone Number [facility] ([facility]) * T4 FREE (02/27/2014 7:35 AM CDT) Only the most recent of2 resultswithin the time period is included. T4 Free 1.0 0.8 - 1.8 ng/dL [facility] ([facility]) Comment: Test Performed at: [email or web address]ITALSt[facility] Entertainment[facility] [place], [place] ??[phone] MAMTA IRVING DO,MPH 02/27/2014 7:35 AM CDT 02/27/2014 7:36 AM CDT Toma Ulirch MD LAB - CHEMISTR Y ORDERABLES Performing Organization Address [facility] de Phone Number [facility] ([facility]) * HLA TYPING B27 (10/29/2013 12:31 PM CDT) HLA-B27 NEGATIVE NEGATIVE [facility] ([facility]) Comment: Test Performed at: [email or web address] ??[phone] DIRK LUNA MD Blood specimen (specimen) BLOOD SPECIMEN / Unknown 10/29/2013 12:31 PM CDT 10/29/2013 12:33 PM CDT Toma Ulrich MD LAB - CHEMISTR Y ORDERABLES Performing Organization Address [facility] de Phone Number [facility] ([facility]) * DNA ANTIBODY DS CRITHIDIA IFA (10/29/2013 12:27 PM CDT) dsDNA Antibody Crithidia IFA NEGATIVE NEGATIVE [facility] ([facility]) Comment: This test was developed and its performance characteristics have been determined by [employer] [facility]. It has not been cleared or approved by the U.S. Food and Drug Administration. The FDA has determined that such clearance or approval is not necessary. Performance characteristics refer to the analytical performance of the test. dsDNA Antibody Crithidia Titer TNP-Reflex testing not required. [facility] ([facility]) Comment: Test Performed at: [email or web address] [address] [place], [place] ??[address] DEO PIMENTEL MD PHD 10/29/2013 12:2 7 PM CDT 10/29/2013 12:30 PM CDT Toma Ulrich MD LAB - SEROLOGY ORDERABLES Performing Organization Address [facility] de Phone Number [facility] ([facility]) * (ABNORMAL) URINALYSIS W/MICROSCOPIC NO CULTURE (10/29/2013 12:27 PM CDT) Color UA YELLOW YELLOW [facility] ([facility]) Appearance CLEAR CLEAR [facility] ([facility]) Specific [place] Urine 1.010 1.001 - 1.035 [facility] ([facility]) pH Urine 6.5 5.0 - 8.0 [facility] ([facility]) Glucose UA NEGATIVE NEGATIVE [facility] ([facility]) Bilirubin UA NEGATIVE NEGATIVE [facility] ([facility]) Ketones NEGATIVE NEGATIVE [facility] ([facility]) Blood UA 2+(A) NEGATIVE [facility] ([facility]) Protein UA NEGATIVE NEGATIVE [facility] ([facility]) Nitrite UA NEGATIVE NEGATIVE [facility] ([facility]) Leukocyte Esterase NEGATIVE NEGATIVE [facility] ([facility]) WBC Urine 0-5 < OR = 5 /HPF [facility] ([facility]) RBC Urine 0-3 < OR = 3 /HPF [facility] ([facility]) Squamous Epithelial Cells UA 0-5 < OR = 5 /HPF [facility] ([facility]) Bacteria UA FEW(A) NONE SEEN /HPF [facility] ([facility]) Hyaline Casts UA NONE SEEN NONE SEEN /LPF [facility] ([facility]) Comment: Test Performed at: [email or web address] [place] [address] [place], [place] ??[phone] MAMTA IRVING DO,MPH Urine specimen (specimen) URINE SPECIMEN OBTAINED BY CLEAN CATCH PROCEDURE / Unknown 10/29/2013 12:27 PM CDT 10/29/2013 12:30 PM CDT Toma Ulrich MD LAB - URINALYS IS ORDERABLES Performing Organization Address [facility]/ZIP Co de Phone Number [facility] ([facility]) * CHROMATIN ANTIBODY (10/29/2013 12:27 PM CDT) Chromatin Nucleosomal <1.0 NEG <1.0 NEG AI [facility] ([facility]) Comment: Test Performed at: [facility] [id number] [place], [place] ??[phone] MAMTA IRVING DO,MPH Blood specimen (specimen) BLOOD SPECIMEN / Unknown 10/29/2013 12:27 PM CDT 10/29/2013 12:30 PM CDT Toma Ulrich MD LAB - SEROLOGY ORDERABLES Performing Organization Address [facility]/State/ZIP Co de Phone Number [facility] ([facility]) * CARDIOLIPIN ANTIBODY IGA (10/29/2013 12:27 PM CDT) Cardiolipin Antibody IgA <11 <=11 APL [facility] ([facility]) Comment: Cardiolipin Ab (IgA) ? Reference range: ?? Value Units Interpretation ?? <=11 ?? APL ? Negative ??12-20 ?? APL ? Indeterminate ??21-80 ?? APL ? Low to Medium Positive ?>80 ?? APL ? High Positive Test Performed at: [email or web address]/[address] ?? JUANITO OTRRES MD Blood specimen (specimen) BLOOD SPECIMEN / Unknown 10/29/2013 12:27 PM CDT 10/29/2013 12:30 PM CDT Toma Ulrich MD LAB - SEROLOGY ORDERABLES [facility] ([facility]) * CARDIOLIPIN ANTIBODY IGM (10/29/2013 12:27 PM CDT) Pathologist [facility] Cardiolipin Antibody IgM <12 <=12 MPL [facility] ([facility]) Comment: Cardiolipin Ab (IgM) ? Reference range: ?? Value Units Interpretation ?? <=12 ?? MPL ? Negative ??13-20 ?? MPL ? Indeterminate ??21-80 ?? MPL ? Low to Medium Positive ?>80 ?? MPL ? High Positive Test Performed at: [email or web address] [address] [place] [address] ?? JUANITO TORRES MD Blood specimen (specimen) BLOOD SPECIMEN / Unknown 10/29/2013 12:27 PM CDT 10/29/2013 12:30 PM CDT Toma Ulrich MD LAB - SEROLOGY ORDERABLES Performing Organization Address [facility]/ZIP Co de Phone Number [facility] ([facility]) * CARDIOLIPIN ANTIBODY IGG (10/29/2013 12:27 PM CDT) Pathologist [facility] Cardiolipin Antibody IgG <14 <=14 GPL [facility] ([facility]) Comment: Cardiolipin Ab (IgG) ? Reference range: ?? Value Units Interpretation ?? <=14 ?? GPL ? Negative ??15-20 ?? GPL ? Indeterminate ??21-80 ?? GPL ? Low to Medium Positive ?>80 ?? GPL ? High Positive Test Performed at: [email or web address] [address] [place] [address] ?? JUANITO TORRES MD Blood specimen (specimen) BLOOD SPECIMEN / Unknown 10/29/2013 12:27 PM CDT 10/29/2013 12:30 PM CDT Toma Ulrich MD LAB - SEROLOGY ORDERABLES Performing Organization Address [facility]/State/ZIP Co de Phone Number [facility] ([facility]) * LUPUS ANTICOAGULANT PANEL W RFLX (10/29/2013 12:27 PM CDT) Lupus Anticoagulant see note [facility] ([facility]) Comment: A Lupus Anticoagulant is not detected. Reference Range: ??Not Detected ? http://[employer]/faq/LupusAnticoag ? This interpretation is based on the following test results. PTT Lupus Anticoagulant 35 <=40 sec [facility] ([facility]) Interpretation Not Indicated [facility] ([facility]) dRVVT Screen 31 <=45 sec [facility] ([facility]) Comment: Test Performed at: [email or web address] [address] [place] [address] ?? JUANITO TORRES MD Plasma specimen (specimen) 10/29/2013 12:27 PM CDT 10/29/2013 12:30 PM CDT Toma Ulrich MD LAB - HEMATOLO GY ORDERABLES [facility] ([facility]) * BETA-2 GLYCOPROTEIN 1 ANTIBODY IGG/IGM/IGA PANEL (10/29/2013 12:27 PM CDT) Pathologist [facility] Beta-2 Glycoprotein 1 Antibody 1 IgG <9 <=20 SGU [facility] ([facility]) Comment: Test Performed at: [facility] [address] [place] [address] ?? JUAINTO TORRES MD Beta-2 Glycoprotein 1 Antibody IgM <9 <=20 [facility]U [facility] ([facility]) Beta-2 Glycoprotein 1 Antibody IgA <9 <=20 YAAKOV [facility] ([facility]) Comment: The Antiphospholipid Antibody Syndrome (APS) is a clinical-pathologic correlation that includes a clinical event (e.g. thrombosis, loss, thrombocytopenia) and persistent positive Antiphospholipid Antibodies (IgM or IgG MANOLO >40 MPL/GPL, IgM or IgG anti-B2GPI antibodies, or a Lupus Anticoagulant). The IgA isotype has been implicated in smaller studies, but have not yet been incorporated into the APS criteria. International consensus guidelines suggest waiting at least 12 weeks before retesting to confirm antibody persistence. Reference J Thromb Haemost 2006: 4; 295 For more information on this test, go to http://education.BeautyCon/faq/FGT045 Serum 10/29/2013 12:2 7 PM CDT 10/29/2013 12:30 PM CDT Toma Ulrich MD LAB - SEROLOGY ORDERABLES Performing Organization Address [facility] de Phone Number [facility] ([facility]) * THOMAS (SM) ANTIBODY VIN (10/29/2013 12:27 PM CDT) VIN Thomas (SM) Antibody <1.0 NEG <1.0 NEG AI [facility] ([facility]) Comment: Test Performed at: [facility] [address] [place], [place] ??[phone] MAMTA IRVING DO,MPH Blood specimen (specimen) BLOOD SPECIMEN / Unknown 10/29/2013 12:27 PM CDT 10/29/2013 12:30 PM CDT Toma Ulrich MD LAB - CHEMISTR Y ORDERABLES Performing Organization Address [facility] de Phone Number [facility] ([facility]) * WOOD GANG SAWYER ANTIBODY (10/29/2013 12:27 PM CDT) VIN [employer] SAWYER Antibody <1.0 NEG <1.0 NEG AI [facility] ([facility]) Comment: Test Performed at: [facility] [address] [place], [place] ??[phone] MAMTA IRVING DO,MPH Blood specimen (specimen) BLOOD SPECIMEN / Unknown 10/29/2013 12:27 PM CDT 10/29/2013 12:30 PM CDT Toma Ulrich MD LAB - CHEMISTR Y ORDERABLES Performing Organization Address [facility]/State/ZIP Co de Phone Number [facility] ([facility]) * RHEUMATOID FACTOR BLOOD QUANTITATIVE (10/29/2013 12:27 PM CDT) Pathologist [facility] Rheumatoid Factor 9 <14 IU/mL [facility] ([facility]) Comment: Test Performed at: [email or web address] [place] [address] [place], [place] ??[address] MAMTA IRVING DO,MPH Blood specimen (specimen) BLOOD SPECIMEN / Unknown 10/29/2013 12:27 PM CDT 10/29/2013 12:30 PM CDT Toma Ulrich MD LAB - CHEMISTR Y ORDERABLES Performing Organization Address [facility] Co de Phone Number [facility] ([facility]) * C-REACTIVE PROTEIN (10/29/2013 12:27 PM CDT) [facility] C-Reactive Protein 0.10 <0.80 mg/dL [facility] ([facility]) Comment: Please be advised that patients taking Carboxypenicillins may exhibit falsely decreased C-Reactive Protein levels due to an analytical interference in this assay. Test Performed at: [facility] [address] [place], [place] ??[phone] MAMTA IRVING DO,MPH Blood specimen (specimen) BLOOD SPECIMEN / Unknown 10/29/2013 12:27 PM CDT 10/29/2013 12:30 PM CDT Toma Ulrich MD LAB - CHEMISTR Y ORDERABLES Performing Organization Address [facility]/State/ZIP Co de Phone Number [facility] ([facility]) * NADIR BLOOD SCREEN W/REFLEX TITER (10/29/2013 12:27 PM CDT) [facility] NADIR Screen NEGATIVE NEGATIVE [facility] ([facility]) Comment: Test Performed at: [email or web address] [address] [id number] [place], [place] ??[phone] MAMTA IRVING DO,MPH Blood specimen (specimen) BLOOD SPECIMEN / Unknown 10/29/2013 12:27 PM CDT 10/29/2013 12:30 PM CDT Toma Ulrich MD LAB - CHEMISTR Y ORDERABLES Performing Organization Address [facility] de Phone Number [facility] ([facility]) * SS-A/SS-B (SJOGRENS) ANTIBODY PANEL (10/29/2013 12:27 PM CDT) Pathologist [facility] Sjogren's Antibodies (SSA) <1.0 NEG <1.0 NEG AI [facility] ([facility]) Sjogren's Antibodies (SSB) <1.0 NEG <1.0 NEG AI [facility] ([facility]) Comment: Test Performed at: [email or web address] [address] [place], [place] ??[address] MAMTA IRVING DO,MPH 10/29/2013 12:2 7 PM CDT 10/29/2013 12:30 PM CDT Toma Ulrich MD LAB - CHEMISTR Y ORDERABLES Performing Organization Address [facility] de Phone Number [facility] ([facility]) * HISTONE ANTIBODY (10/29/2013 12:27 PM CDT) Pathologist [facility] Histone Antibody <1.0 <1.0 U [facility] ([facility]) Comment: REFERENCE RANGE: ? <1.0 ? Negative ?1.0 to 1.5 ?Weak Positive ?1.6 to 2.5 ?Moderate Positive ?>2.5 ?Strong Positive ? Test Performed at: [facility] [address] [place], [place] ??[address] JUANITO TORRES MD 10/29/2013 12:2 7 PM CDT 10/29/2013 12:30 PM CDT Toma Ulrich MD LAB - CHEMISTR Y ORDERABLES [facility] ([facility]) * COMPLEMENT TOTAL (10/29/2013 12:27 PM CDT) Pathologist [facility] Complement Total CH50 57 31 - 60 U/mL [facility] ([facility]) Comment: Test Performed at: [employer] [address] [place], [place] ??[address] MAMTA IRVING DO,MPH Blood specimen (specimen) BLOOD SPECIMEN / Unknown 10/29/2013 12:27 PM CDT 10/29/2013 12:30 PM CDT Toma Ulrich MD LAB - CHEMISTR Y ORDERABLES Performing Organization Address [facility] de Phone Number [facility] ([facility]) * SCLERODERMA 70 (SCL) ANTIBODY (10/29/2013 12:27 PM CDT) Pathologist [facility] VIN SCL-70 Antibody <1.0 NEG <1.0 NEG AI [facility] ([facility]) Comment: Test Performed at: [facility] [address] [place], [place] ??[address] MAMTA IRVING DO,MPH Blood specimen (specimen) BLOOD SPECIMEN / Unknown 10/29/2013 12:27 PM CDT 10/29/2013 12:30 PM CDT Toma Ulrich MD LAB - CHEMISTR Y ORDERABLES Performing Organization Address [facility]/State/ZIP Co de Phone Number [facility] ([facility]) * CYCLIC CITRUL PEPTIDE AB IGG (CCP) (10/29/2013 12:27 PM CDT) Pathologist [facility] Cyclic Citrullinated Peptide Antibody <16 UNITS [facility] ([facility]) Comment: Reference Range Negative: ?<20 Weak Positive: ? 20-39 Moderate Positive: ?? 40-59 Strong Positive: ? >59 Test Performed at: [email or web address] [address] [place], [place] ??[address] MAMTA IRVING DO,MPH Blood specimen (specimen) BLOOD SPECIMEN / Unknown 10/29/2013 12:27 PM CDT 10/29/2013 12:30 PM CDT Toma Ulrich MD LAB - CHEMISTR Y ORDERABLES Performing Organization Address [facility]/ZIP Co de Phone Number [facility] ([facility]) * ERYTHROCYTE SEDIMENTATION RATE (10/29/2013 12:27 PM CDT) Erythrocyte Sedimentation Rate Westergren 2 < OR = 20 mm/h [facility] ([facility]) Comment: Test Performed at: [email or web address] ??[address] MAMTA IRVING DO,MPH Blood specimen (specimen) BLOOD SPECIMEN / Unknown 10/29/2013 12:27 PM CDT 10/29/2013 12:30 PM CDT Toma Ulrich MD LAB - HEMATOLO GY ORDERABLES Performing Organization Address [facility]/ZIP Co de Phone Number [facility] ([facility]) * (ABNORMAL) CBC W/O DIFFERENTIAL (10/29/2013 12:27 PM CDT) WBC 4.6 3.8 - 10.8 Thousand/u L [facility] ([facility]) RBC 4.28 3.80 - 5.10 Million/uL [facility] ([facility]) Hemoglobin 14.2 11.7 - 15.5 g/dL [facility] ([facility]) Hematocrit 41.2 35.0 - 45.0 % [facility] ([facility]) MCV 96.4 80.0 - 100.0 fL [facility] ([facility]) MCH 33.2(H) 27.0 - 33.0 pg [facility] ([facility]) MCHC 34.4 32.0 - 36.0 g/dL [facility] ([facility]) RDW 13.2 11.0 - 15.0 % [facility]) Platelet 223 140 - 400 Thousand/u L [facility] ([facility]) Comment: Test Performed at: [email or web address] [place] [address] [place], [place] ??[address] MAMTA IRVING DO,MPH Blood specimen (specimen) BLOOD SPECIMEN / Unknown 10/29/2013 12:27 PM CDT 10/29/2013 12:30 PM CDT Toma Ulrich MD LAB - HEMATOLO GY ORDERABLES Performing Organization Address [facility]/State/ZIP Co de Phone Number [facility] ([facility]) * COMPLEMENT C4 (10/29/2013 12:27 PM CDT) Complement C4 27 16 - 47 mg/dL [facility] ([facility]) Comment: Test Performed at: [email or web address] [place], [place] ??[address] MAMTA IRVING DO,MPH Blood specimen (specimen) BLOOD SPECIMEN / Unknown 10/29/2013 12:27 PM CDT 10/29/2013 12:30 PM CDT Toma Ulrich MD LAB - SEROLOGY ORDERABLES Performing Organization Address [facility] de Phone Number [facility] ([facility]) * HEPATITIS B SURFACE ANTIGEN W RFLX CONFIRMATION (10/29/2013 12:27 PM CDT) Hepatitis B Virus Surface Antigen NON-REACTI VE NON-REACT DARREL [facility] ([facility]) Comment: Test Performed at: [email or web address]ITAL[facility]ry[facility] EntertainmentA [address] [place], [place] ??[address] MAMTA IRVING DO,MPH Blood specimen (specimen) BLOOD SPECIMEN / Unknown 10/29/2013 12:27 PM CDT 10/29/2013 12:30 PM CDT Toma Ulrich MD LAB - CHEMISTR Y ORDERABLES Performing Organization Address City/[facility]/ZIP Co de Phone Number [facility] ([facility]) * (ABNORMAL) CK BLOOD (10/29/2013 12:27 PM CDT) Pathologist [facility] CK Total 173(H) 29 - 143 U/L [facility] ([facility]) Comment: Test Performed at: [email or web address] [facility] ??[address] MAMTA IRVING DO,MPH Blood specimen (specimen) BLOOD SPECIMEN / Unknown 10/29/2013 12:27 PM CDT 10/29/2013 12:30 PM CDT Toma Ulrich MD LAB - CHEMISTR Y ORDERABLES Performing Organization Address City/[facility] Co de Phone Number [facility] ([facility]) * HEPATITIS C ANTIBODY (10/29/2013 12:27 PM CDT) Pathologist [facility] Hepatitis C Antibody NON-REACTI VE NON-REACT DARREL [facility] ([facility]) Signal/Cutoff 0.08 <1.00 [facility] ([facility]) Comment: Test Performed at: [facility] ??[address] MAMTA IRVING DO,MPH Blood specimen (specimen) BLOOD SPECIMEN / Unknown 10/29/2013 12:27 PM CDT 10/29/2013 12:30 PM CDT Toma Ulrich MD LAB - CHEMISTR Y ORDERABLES Performing Organization Address City/[facility] de Phone Number [facility] ([facility]) * COMPLEMENT C3 (10/29/2013 12:27 PM CDT) Pathologist [facility] Complement C3 99 90 - 180 mg/dL [facility] ([facility]) Comment: Test Performed at: [email or web address] [address] [place] ??[address] MAMTA IRVING DO,MPH Blood specimen (specimen) BLOOD SPECIMEN / Unknown 10/29/2013 12:27 PM CDT 10/29/2013 12:30 PM CDT Toma Ulrich MD LAB - CHEMISTR Y ORDERABLES [facility] ([facility]) * SONOGRAM - COMPLETE (06/21/2012 12:45 PM SERVICING MANAGER) Anatomical Region Laterality Modality Other 06/21/2012 12:4 5 PM SERVICING MANAGER Narrative 06/21/2012 3:21 PM SERVICING MANAGER ? [facility] ?PHONE: ??FAX: Pat. Name: ?FLACO GUTIERREZ. No: ?[id number] Study Date: ?? 06/21/2012 ??12:45pm , Age: ? 1975, 37 Pregnancies: ?? 2, Para 1 LMP: ?11/12/2011 GA by LMP: ?31w5d GA by US: ? 32w3d GA Selected: ??31w5d (LMP) DELILAH: ?08/18/2012 Referring MD: WILMAN WINCHESTER MD Deputy Sheriff/Investigator: ??Boris Moncada RDMS/lul Hist/Ind: ? Advanced Maternal Age ?Abnormal Outside Scan MEASUREMENTS & AGE ? GROWTH EVALUATION Measurement ??GA ? Range ? Srce %for GA Ratios ----- ---- ------- BPD ??8.1 cm 32w3d (14y6w-28l4w) Hadl BPD 60% FL/BPD 0.76 (0.71 - 0.87) HC ??30.0 cm 33w2d (74z4b-54w1a) Hadl HC ??74% FL/AC ??0.21 (0.20 - 0.24) AC ??28.6 cm 32w4d (02m6d-16y5w) Hadl AC ??64% HC/AC ??1.05 (0.96 - 1.15) FL ?? 6.1 cm 31w5d (66q7q-29d3a) Hadl FL ??50% CI ? 0.75 (0.70 - 0.86) HL ?? 5.5 cm 32w1d (62v2x-46k2q) Chaim HL ??58% GA for sonogram 32w3d (51z0g-41k9y) ?? Weight Estimate: based on (HL,BPD,HC,AC,FL) Avg ? Weight: 1969 gm (0370-5094) Hadlo ? : 4lbs, 5oz ? Normal: 1756 gm (1271- 2437) Brenn ? Wt% ? 63% for 31.7 wks Heart Rate: 121 bpm Amniotic Fluid Index: 12.5cm (08.7-24.1) CLINICAL SUMMARY Study Number: ??1 A faustin fetus is identified in cephalic presentation. ??The measurements today are consistent with appropriate growth compared to previous examination. ??The DELILAH selected is based on her LMP and a prior ultrasound examination. ??The amniotic fluid volume is within normal limits. ??The placenta is posterior, Grade 2. ?? Occasional PAC's are noted. ??No major malformations are seen. ?? The patient was advised that ultrasound does not allow detection of all structural or chromosomal abnormalities. ?? ECHO: Situs solitus The heart is of normal size. ?? Normal ??4 chamber heart was visualized with normal cardiac axis. ?? Normal ??right ventricular outflow tracts. Normal left ventricular outflow tracts. Normal venous returns The following was well visualized: aortic arch The following was well visualized: ductal arch No pericardial effusion observed ANATOMY: There is no evidence of cardiomegaly. Right and left atria are symmetric and approximately equal in size. ?? Right and left ventricles are symmetric and approximately equal in size. HEART RATE AND RHYTHM: heart rate is 121 bpm. ??Visual infrequent skipped beats were confirmed by M-mode to be premature atrial contractions: every 5th to 9th beat. IMPRESSION: ?? Single, live, IUP 31w5d No anomalies identified Normal cardiac anatomy at echocardiogram Infrequent PAC's noted at M-mode interrogation No evidence of hydrops Appropriate growth and fluid RECOMMEND: ?? Follow up ultrasound for growth evaluation in four weeks. Weekly surveillance with NST's and limited ultrasound to rule-out hydrops Discussed by phone with Dr. Barajas Thank you for allowing us the opportunity to care for your patient. Rinku Bran MD <Electronic Signature> ??06/21/2012 03:21pm Wilman Winchester MD M ORDERABLES * LAB HISTORICAL RESULTS-ONBASE (04/10/2007) 04/10/2007 Narrative [facility] - 10/16/2013 11:32 AM CDT Historical Provider LAB - CHEMISTRY O RDERABLES Performing Organization Address City/State/[facility] Co de Phone Number [facility] [address] [place] [address], [facility] Care Teams Call Center Assistant Relationship Specialty Start Date End Date Tj Jerome MD [address] [facility] [address] [place] [address] PCP - General Family Medicine 06/21/12
--- OUTSIDE RECORDS SUMMARY | 2024-06-21 16:18 | XMS_ITS | Clinical Summary ---
Author Organization [facility] [employer] Address [address] [facility] [place] [address] Care Team Providers Care Member Of Congress Name Role Phone Tj Jerome MD Primary Care Provider [phone] Source Comments [facility] [employer],non-owned Affiliates and Associated Physician Practices is amultiple site organization consisting of ambulatory clinics and hospital sitesin [place], [place], [place] and [place]. This disclosure is being madepursuant to the Care Everywhere program and may not contain all information available regarding this patient. Last updated 18.[facility] [employer] Allergies Active Allergy Reactions Criticality Noted Date [...] 03/09/2017 8:19 PM CDT Plan of Treatment Health Maintenance Due Date Last Done Comments COLOGUARD (AGES 45-75) - COL ON CA SCREENING 1975 COLON MONITORING 1975 COLONOSCOPY - COLON CA SCREENING 1976 CT COLONOGRAPHY - COLON CA SCREENING 1975 Colorectal Cancer Screening 1975 FIT - COLON CA SCREENING 1975 FLEX SIG - COLON CA SCREENING 1975 LIPID TESTING 1975 MAMMOGRAM 1975 PAP SMEAR 1975 HIV SCREENING 02/03/1991 DTAP/TDAP/TD VACCINES (1 - Tdap) 02/03/1995 HEPATITIS B VACCINE (1 of 3 - 19+ 3-dose series) 02/03/1995 COVID-19 VACCINE ( - 2023-2 5 season) 2024 INFLUENZA VACCINE (#1) 2024 02/27/2014 DEPRESSION SCREENING 05/30/2024 ZOSTER VACCINE (1 of 2) 02/03/2026 HEPATITIS C SCREENING Completed 10/29/2013 HIB VACCINE Aged Out No longer eligi ble based on patient's age to complete this topic HPV VACCINE Aged Out No longer eligi ble based on patient's age to complete this topic MENINGOCOCCAL (Group B) VACCINE Aged Out No longer eligible based on patient's age to complete this topic MENINGOCOCCAL VACCINE Aged Out No parker jayne eligible based on patient's age to complete this topic PNEUMOCOCCAL VACCINE Aged Out No long er eligible based on patient's age to complete this topic Procedures Procedure Name Priority Date/Time Associated Diagnosis Comments HEPATITIS C ANTIBODY Routine 10/29/2013 12:27 PM CDT from Last 3 Months or Most Recently Relevant to Health Maintenance Results * HEPATITIS C ANTIBODY (10/29/2013 12:27 PM CDT) Hepatitis C Antibody NON-REACTI VE NON-REACT DARREL [facility]) Signal/Cutoff 0.08 <1.00 [facility]) Comment: Test Performed at: [facility] [address] [place], [place] ??[address] MAMTA IRVING DO,MPH Blood specimen (specimen) BLOOD SPECIMEN / Unknown 10/29/2013 12:27 PM CDT 10/29/2013 12:30 PM CDT Toma Ulrich MD LAB - CHEMISTR Y ORDERABLES [facility]) from Last 3 Months or Most Recently Relevant to Health Maintenance Care Teams Member Of Congress Relationship Specialty Start Date End Date Tj Jerome MD [address] [place] [address] [address] [place] [address] PCP - General Family Medicine 06/21/12
== END 2024-06-19 08:45 | disposition home or self-care (01) ==
PROVIDERS: PCP Obstetrics & Gynecology; Visit Provider Obstetrics & Gynecology
DX: N63.0 Unspecified lump in unspecified breast (principal)
CPT/HCPCS: 76882; 77062; 77066; G0279